=== PATIENT | female | born 1945 | race Asian ===

== ENCOUNTER → 2016-10-30 | Outpatient (CLI) | payer OTHER | LOC: BRMIMAGING 13:00 | PROVIDERS: ATTEND Family Medicine | DX: Z12.31 Encounter for screening mammogram for malignant neoplasm of breast (principal) | CPT/HCPCS: G0202 ==

== ENCOUNTER → 2016-11-15 | Outpatient (CLI) | payer OTHER | LOC: BRMIMAGING 08:41 | PROVIDERS: ATTEND Family Medicine | DX: Z13.820 Encounter for screening for osteoporosis (principal); M81.0 Age-related osteoporosis without current pathological fracture; Z78.0 Asymptomatic menopausal state ==

== ENCOUNTER → 2017-11-12 | Outpatient (CLI) | payer OTHER | LOC: BRMIMAGING 08:12 | PROVIDERS: ATTEND Family Medicine | DX: Z12.31 Encounter for screening mammogram for malignant neoplasm of breast (principal); Z80.3 Family history of malignant neoplasm of breast ==